=== PATIENT | male | born 1980 | race African-American/Black ===

== ENCOUNTER 2017-01-23 22:18 | Inpatient (IN) | payer MEDICAID ==
[~2017-01-23] VITALS: Ht 185.4 cm; Wt 112.7 kg
[2017-01-23] MEDS ORDERED: PRED20 PO (22:36)
[2017-01-23] MEDS ORDERED: LITH300T3 PO (22:47)
[2017-01-23] MEDS ORDERED: ZOLPIDEM TARTRATE 10 MG TABLET PO PRN (23:45)
[2017-01-23] MEDS ORDERED: HALOPERIDOL 5 MG TABLET PO PRN (23:45)
[2017-01-23 23:57] LABS: BASOPHILS # (AUTO) 0.03 K/uL (0.00-0.20); BASOPHILS % (AUTO) 0.4 % (0.0-2.0); EOSINOPHILS % (AUTO) 3.22 % (1.0-6.0); HEMATOCRIT 40.7 % (41-53); HEMOGLOBIN 13.5 g/dL (13.5-17.5); LYMPHOCYTES # (AUTO) 1.5 K/uL (1.0-4.8); LYMPHOCYTES % (AUTO) 16.5 % (22.0-44.0); MEAN CORPUSCULAR HEMOGLOBIN 29.4 pg (26.0-34.0); MEAN CORPUSCULAR HGB CONC 33.2 G/dL (31.0-37.0); MEAN CORPUSCULAR VOLUME 89 fL (80-100); MONOCYTES # (AUTO) 0.9 K/uL (0.1-1.0); MONOCYTES % (AUTO) 9.4 % (2.0-9.0); NEUTROPHILS # (AUTO) 6.5 K/uL (1.8-7.7); NEUTROPHILS % (AUTO) 70.5 % (40.0-70.0); PLATELET COUNT (AUTO) 193 K/uL (150-450); RED BLOOD CELL COUNT(AUTO) 4.59 MIL/uL (4.50-5.90); RED CELL DISTRIBUTION WIDTH 15.5 % (11.5-14.5); WHITE BLOOD COUNT (AUTO) 9.2 K/uL (4.5-11.0)
[2017-01-24 00:08] LABS: ANION GAP 11 mmol/L (8-16); CALCIUM, TOTAL 8.1 mg/dL (8.8-10.5); CARBON DIOXIDE 24 mmol/L (22-29); CHLORIDE 104 mmol/L (98-107); CREATININE 1.36 mg/dL (0.60-1.30); GLOMERULAR FILTR. RATE CALC > 60 mL/min (>60); POTASSIUM 3.6 mmol/L (3.5-5.1); SODIUM SERUM 139 mmol/L (136-145); UREA NITROGEN, BLOOD 11 mg/dL (7-18)
[2017-01-24 00:14] LABS: ALANINE AMINOTRANSFERASE 43 U/L (12-78); ALBUMIN 3.6 g/dL (3.4-5.0); ASPARTATE AMINOTRANSFERASE 40 U/L (15-37); BILIRUBIN,TOTAL 0.6 mg/dL (0.1-1.0); TOTAL PROTEIN, SERUM 7.6 g/dL (6.4-8.2)
[2017-01-24 00:20] LABS: RBC MORPHOLOGY COMMENT ABNORMAL RBC MORPH
[2017-01-24] MEDS ORDERED: INFLUENZA VIRUS VACCINE QVS 2016-17 (3YR+)/PF 60 MCG/0.5 ML SYRINGE IM ONE (02:30)
[2017-01-24 02:40] VITALS: BP 103/63
[2017-01-24] MEDS ORDERED: BACITRACIN 28.4 GM OINTMENT TP PRN (08:15)
[2017-01-24] MEDS ORDERED: LOPERAMIDE HCL 2 MG CAPSULE PO PRN (08:15)
[2017-01-24] MEDS ORDERED: BENZOCAINE/MENTHOL LOZENGE [8 LOZENGES/PACKET] MM PRN (08:15)
[2017-01-24] MEDS ORDERED: MAG HYDROX/AL HYDROX/SIMETH ES 30 ML SUSPENSION UDCUP PO PRN (08:15)
[2017-01-24] MEDS ORDERED: CloNIDine HCL 0.1 MG TABLET PO PRN (08:15)
[2017-01-24] MEDS ORDERED: ONDANSETRON HCL 4 MG TABLET PO PRN (08:15)
[2017-01-24] MEDS ORDERED: MAGNESIUM HYDROXIDE SUSPENSION 30 ML UDCUP PO PRN (08:15)
[2017-01-24] MEDS ORDERED: IBUPROFEN 600 MG TABLET PO PRN (08:15)
[2017-01-24] MEDS ORDERED: ACETAMINOPHEN 325 MG TABLET PO PRN (08:15)
[2017-01-24] MEDS ORDERED: PETROLATUM,WHITE 71 GM JELLY TP PRN (08:15)
[2017-01-24] MEDS ORDERED: ALBUTEROL SULFATE HFA 90 MCG/PUFF 8 GM INHALER IH PRN (08:15)
[2017-01-24 10:25] VITALS: BP 110/60
[2017-01-24 16:30] VITALS: BP 109/61
[2017-01-24] MEDS: LITHIUM CARBONATE 300 MG CAPSULE PO SCH (17:10)
[2017-01-24] MEDS: LORazepam 2 MG TABLET PO PRN (18:36)
[2017-01-24] MEDS: QUEtiapine FUMARATE 200 MG TABLET PO SCH (21:36)
[2017-01-25] MEDS: LORazepam 2 MG TABLET PO PRN ×2 (03:25→16:26)
[2017-01-25 04:08] VITALS: BP 114/72
[2017-01-25] MEDS: LITHIUM CARBONATE 300 MG CAPSULE PO SCH ×2 (09:29→16:26)
[2017-01-25 10:13] VITALS: BP 121/76
[2017-01-25 17:53] VITALS: BP 115/73
[2017-01-25] MEDS: QUEtiapine FUMARATE 200 MG TABLET PO SCH (20:44)
[2017-01-25] MEDS ORDERED: HYDROCORTISONE 0.5% 30 GM OINTMENT TP PRN (20:45)
[2017-01-26 05:57] VITALS: BP 119/73
[2017-01-26 08:51] VITALS: BP 103/58
[2017-01-26] MEDS: LITHIUM CARBONATE 300 MG CAPSULE PO SCH ×2 (09:23→16:11)
[2017-01-26 16:12] VITALS: BP 124/72
[2017-01-26] MEDS: MIRTAZAPINE 15 MG TABLET PO SCH (20:23)
[2017-01-26] MEDS: RisperiDONE 3 MG TABLET PO SCH (20:24)
[2017-01-27 08:15] VITALS: BP 114/70
[2017-01-27] MEDS: LITHIUM CARBONATE 300 MG CAPSULE PO SCH ×2 (09:43→17:39)
[2017-01-27 17:15] VITALS: BP 110/65
[2017-01-27] MEDS: MIRTAZAPINE 15 MG TABLET PO SCH (20:37)
[2017-01-27] MEDS: RisperiDONE 3 MG TABLET PO SCH (20:37)
[2017-01-28 06:17] VITALS: BP 117/59
[2017-01-28 08:51] VITALS: BP 129/88
[2017-01-28] MEDS: LITHIUM CARBONATE 300 MG CAPSULE PO SCH ×2 (09:32→16:42)
[2017-01-28 17:50] VITALS: BP 135/78
[2017-01-28] MEDS: MIRTAZAPINE 15 MG TABLET PO SCH (21:08)
[2017-01-28] MEDS: RisperiDONE 3 MG TABLET PO SCH (21:08)
[2017-01-29 08:13] VITALS: BP 111/76
[2017-01-29] MEDS: LITHIUM CARBONATE 300 MG CAPSULE PO SCH (09:37)
[2017-01-29] MEDS ORDERED: MIRT15 PO (12:04)
[2017-01-29] MEDS ORDERED: RISP3 PO (12:04)
== END 2017-01-29 15:00 | disposition home or self-care (01) | DRG 750 ==
LOC: EMS 22:20 → 3EI 01-24 01:33
DX: F25.0 Schizoaffective disorder, bipolar type (principal); D86.9 Sarcoidosis, unspecified; R45.851 Suicidal ideations; E66.9 Obesity, unspecified; F17.200 Nicotine dependence, unspecified, uncomplicated; F12.90 Cannabis use, unspecified, uncomplicated; E83.51 Hypocalcemia; F15.10 Other stimulant abuse, uncomplicated; G47.00 Insomnia, unspecified; Z71.6 Tobacco abuse counseling; Z71.51 Drug abuse counseling and surveillance of drug abuser; Z68.32 Body mass index [BMI] 32.0-32.9, adult; Z91.5 Personal history of self-harm; Z79.899 Other long term (current) drug therapy
CPT/HCPCS: 99285; G0480; J3535

== ENCOUNTER 2017-02-06 14:10 | Inpatient (IN) | payer MEDICAID ==
[~2017-02-06] VITALS: Ht 188 cm; Wt 110.1 kg
[~2017-02-06 14:10] MED LIST: LITH300T3 PO; MIRT15 PO; RISP3 PO
[2017-02-06 15:52] VITALS: BP 102/62
[2017-02-06] MEDS ORDERED: HALOPERIDOL 5 MG TABLET PO PRN (16:00)
[2017-02-06] MEDS ORDERED: LITH300C3 PO (16:12)
[2017-02-06 16:29] VITALS: BP 115/66
[2017-02-06] MEDS: LITHIUM CARBONATE 300 MG CAPSULE PO SCH (16:52)
[2017-02-06] MEDS: LORazepam 2 MG TABLET PO PRN (16:53)
[2017-02-06] MEDS: MIRTAZAPINE 15 MG TABLET PO SCH (20:35)
[2017-02-06] MEDS: ZOLPIDEM TARTRATE 10 MG TABLET PO PRN (20:35)
[2017-02-06] MEDS: RisperiDONE 3 MG TABLET PO SCH (20:35)
[2017-02-07 06:50] VITALS: BP 112/65
[2017-02-07 08:07] VITALS: BP 113/61
[2017-02-07 08:23] LABS: BASOPHILS % (AUTO) 0.4 % (0.0-2.0); EOSINOPHILS % (AUTO) 2.5 % (1.0-6.0); HEMATOCRIT 47.6 % (41-53); HEMOGLOBIN 15.4 g/dL (13.5-17.5); LYMPHOCYTES # (AUTO) 2.3 K/uL (1.0-4.8); LYMPHOCYTES % (AUTO) 23.4 % (22.0-44.0); MEAN CORPUSCULAR HGB CONC 32.4 G/dL (31.0-37.0); MEAN CORPUSCULAR VOLUME 90 fL (80-100); MONOCYTES # (AUTO) 0.7 K/uL (0.1-1.0); MONOCYTES % (AUTO) 7.5 % (2.0-9.0); NEUTROPHILS # (AUTO) 6.6 K/uL (1.8-7.7); NEUTROPHILS % (AUTO) 66.2 % (40.0-70.0); PLATELET COUNT (AUTO) 303 K/uL (150-450); RED BLOOD CELL COUNT(AUTO) 5.32 MIL/uL (4.50-5.90)
[2017-02-07 08:42] LABS: ALANINE AMINOTRANSFERASE 24 U/L (12-78); ALBUMIN 3.7 g/dL (3.4-5.0); ANION GAP 8 mmol/L (8-16); ASPARTATE AMINOTRANSFERASE 23 U/L (15-37); BILIRUBIN,TOTAL 0.4 mg/dL (0.1-1.0); CARBON DIOXIDE 26 mmol/L (22-29); CHLORIDE 108 mmol/L (98-107); CREATININE 1.32 mg/dL (0.60-1.30); GLOMERULAR FILTR. RATE CALC > 60 mL/min (>60); SODIUM SERUM 142 mmol/L (136-145); TOTAL PROTEIN, SERUM 7.8 g/dL (6.4-8.2); UREA NITROGEN, BLOOD 14 mg/dL (7-18)
[2017-02-07] MEDS: LITHIUM CARBONATE 300 MG CAPSULE PO SCH ×2 (09:12→16:30)
[2017-02-07] MEDS ORDERED: BENZOCAINE/MENTHOL LOZENGE MM PRN (11:30)
[2017-02-07] MEDS ORDERED: LOPERAMIDE HCL 2 MG CAPSULE PO PRN (11:30)
[2017-02-07] MEDS ORDERED: ALBUTEROL SULFATE HFA 90 MCG/PUFF 8 GM INHALER IH PRN (11:30)
[2017-02-07] MEDS ORDERED: MAGNESIUM HYDROXIDE SUSPENSION 30 ML UDCUP PO PRN (11:30)
[2017-02-07] MEDS ORDERED: ONDANSETRON HCL 4 MG TABLET PO PRN (11:30)
[2017-02-07] MEDS ORDERED: CloNIDine HCL 0.1 MG TABLET PO PRN (11:30)
[2017-02-07] MEDS ORDERED: IBUPROFEN 600 MG TABLET PO PRN (11:30)
[2017-02-07] MEDS ORDERED: BACITRACIN 28.4 GM OINTMENT TP PRN (11:30)
[2017-02-07] MEDS ORDERED: PETROLATUM,WHITE 71 GM JELLY TP PRN (11:30)
[2017-02-07] MEDS ORDERED: ACETAMINOPHEN 325 MG TABLET PO PRN (11:30)
[2017-02-07] MEDS ORDERED: MAG HYDROX/AL HYDROX/SIMETH ES 30 ML SUSPENSION UDCUP PO PRN (11:30)
[2017-02-07 16:03] VITALS: BP 117/64
[2017-02-07] MEDS: RisperiDONE 3 MG TABLET PO SCH (20:36)
[2017-02-07] MEDS: LORazepam 2 MG TABLET PO PRN (20:36)
[2017-02-07] MEDS: MIRTAZAPINE 15 MG TABLET PO SCH (20:36)
[2017-02-08 06:47] VITALS: BP 115/67
[2017-02-08] MEDS: LITHIUM CARBONATE 300 MG CAPSULE PO SCH ×2 (08:45→16:17)
[2017-02-08] MEDS ORDERED: HALOPERIDOL LACTATE 5 MG/ML VIAL ONE (18:27)
[2017-02-08] MEDS ORDERED: DiphenhydrAMINE HCL 50 MG/ML VIAL ONE (18:27)
[2017-02-08] MEDS ORDERED: LORazepam 2 MG/ML VIAL ONE (18:27)
[2017-02-08] MEDS ORDERED: LORazepam 2 MG/ML VIAL IM ONE (18:30)
[2017-02-08] MEDS ORDERED: HALOPERIDOL LACTATE 5 MG/ML VIAL IM ONE (18:30)
[2017-02-08] MEDS ORDERED: DiphenhydrAMINE HCL 50 MG/ML VIAL IM ONE (18:30)
[2017-02-08] MEDS: RisperiDONE 3 MG TABLET PO SCH (20:40)
[2017-02-08] MEDS: LORazepam 2 MG TABLET PO PRN (20:40)
[2017-02-08] MEDS: MIRTAZAPINE 15 MG TABLET PO SCH (20:40)
[2017-02-08] MEDS: ZOLPIDEM TARTRATE 10 MG TABLET PO PRN (20:40)
[2017-02-09] MEDS: LITHIUM CARBONATE 300 MG CAPSULE PO SCH (09:18)
== END 2017-02-09 13:25 | disposition home or self-care (01) | DRG 750 ==
LOC: B3A 15:58 → EDSTATUS 16:03
DX: F25.1 Schizoaffective disorder, depressive type (principal); D86.9 Sarcoidosis, unspecified; R45.851 Suicidal ideations; F15.10 Other stimulant abuse, uncomplicated; F17.210 Nicotine dependence, cigarettes, uncomplicated; G47.00 Insomnia, unspecified; F12.19 Cannabis abuse with unspecified cannabis-induced disorder; F19.10 Other psychoactive substance abuse, uncomplicated; E66.9 Obesity, unspecified; Z71.6 Tobacco abuse counseling; Z71.51 Drug abuse counseling and surveillance of drug abuser; Z79.899 Other long term (current) drug therapy; Z68.31 Body mass index [BMI] 31.0-31.9, adult
CPT/HCPCS: 87081; J1200; J1630; J2060

== ENCOUNTER 2022-09-18 22:15 | Emergency (ER) | payer MEDICAID ==
[~2022-09-18] VITALS: Ht 188 cm; Wt 104.5 kg
[~2022-09-18 22:15] MED LIST changes: +LITH300C3 PO; -LITH300T3 PO; +MIRT-89 PO; -MIRT15 PO; -RISP3 PO; +RISP3TAB35 PO
[2022-09-19 04:32] VITALS: BP 137/87
== END 2022-09-19 04:33 | disposition home or self-care (01) ==
LOC: EMS 22:23
DX: R06.00 Dyspnea, unspecified (principal); F15.10 Other stimulant abuse, uncomplicated; F41.9 Anxiety disorder, unspecified; F32.A Depression, unspecified; F20.9 Schizophrenia, unspecified; F17.210 Nicotine dependence, cigarettes, uncomplicated; F19.90 Other psychoactive substance use, unspecified, uncomplicated
CPT/HCPCS: 71045; 99283

== ENCOUNTER 2022-09-19 18:35 | Emergency (ER) | payer MEDICAID ==
[~2022-09-19] VITALS: Ht 188 cm; Wt 109.1 kg
[2022-09-19 18:52] VITALS: BP 142/80
== END 2022-09-19 23:52 | disposition left against medical advice (07) ==
LOC: EMS 18:37
DX: R06.02 Shortness of breath (principal); H53.8 Other visual disturbances; Z53.21 Procedure and treatment not carried out due to patient leaving prior to being seen by health care provider